=== PATIENT | female | born 1950 | race Caucasian/White ===

== ENCOUNTER 2017-06-26 20:33 | Emergency (ER) | payer BC ==
[2017-06-26 20:56] VITALS: BP 100/68
[2017-06-26] MEDS ORDERED: Ketorolac INJ* 60 MG/2 ML VIAL IM ONE (21:40)
--- NOTE | 2017-06-26 22:45 | ED ---
Bri Rowe Rebecca, scribed for Brian Domínguez MD on 06/26/17 at 2131 . Lower Extremity - HPI Summary HPI Summary: Pt is a 67 y/o F who presents to ED c/o R ankle pain s/p fall. reports that at approximately 1999 they were set[place]ing up camp and she walked out of their RV, missed a step and fell. She reports hearing a "crack" in the L calf area and twisted her R ankle. She currently c/o severe right ankle pain, ranked 10/10. Sx aggravated by ambulation, alleviated by nothing. - History of Current Complaint Chief Complaint: EDExtremityLower Stated Complaint: RT LEG INJURY Time Seen by Provider: 06/26/17 21:21 Hx Obtained From: Patient Mechanism Of Injury: Twisted - R ankle Onset of Pain: Hours - At 2000 tonight, Prior to Arrival Onset/Duration: Still Present Severity Currently: Severe Pain Intensity: 10 Pain Scale Used: 0-10 Numeric Location: Is Discrete @ - R ankle Aggravating Factor(s): Ambulation Alleviating Factor(s): Nothing - Allergies/Home Medications Allergies/Adverse Reactions: Allergies Allergy/AdvReac Type Severity Reaction Status Date / Time No Known Allergies Allergy Verified 06/26/17 20:54 PMH/Surg Hx/FS Hx/Imm Hx Endocrine/Hematology History: Denies: Hx Diabetes Cardiovascular History: Denies: Hx Coronary Artery Disease, Hx Hypertension Infectious Disease History: Yes Infectious Disease History: Denies: Traveled Outside the [place] in Last 30 Days - Family History Known Family History: Positive: Other - CHF - Social History Alcohol Use: None Substance Use Type: Reports: None Smoking Status (MU): Never Smoked Tobacco Review of Systems Negative: Fever Positive: Arthralgia - R ankle pain s/p twisting injury, Other - "crack" in the L calf [employer] All Other Systems Reviewed And Are Negative: Yes Physical Exam Triage Information Reviewed: Yes Vital Signs On Initial Exam: Initial Vitals Temp Pulse Resp BP Pulse Ox 98 F 60 18 100/68 100 06/26/17 20:54 06/26/17 20:54 06/26/17 20:54 06/26/17 20:54 06/26/17 20:54 Vital Signs Reviewed: Yes Appearance: Positive: Well-Appearing, Pain Distress - mild Skin: Positive: Warm Head/Face: Positive: Normal Head/Face Inspection ENT: Positive: Hearing grossly normal Neck: Positive: Supple Respiratory/Lung Sounds: Positive: Breath Sounds Present Cardiovascular: Positive: RRR Musculoskeletal: Positive: Other - bilat ankle sts, from, nvi, lt lower leg mild mid shaft tendewrness Neurological: Positive: Alert, Oriented to Person Place, Time Psychiatric: Positive: Normal Procedures - Splinting Pre-Made Type: knee immobilizer Pre-Proc Neuro Vasc Exam: normal Post-Proc Neuro Vasc Exam: normal Diagnostics - Vital Signs Vital Signs Temp Pulse Resp BP Pulse Ox 06/26/17 20:56 98 F 60 16 100/68 100 06/26/17 20:54 98 F 60 18 100/68 100 - Laboratory Lab Statement: Any lab studies that have been ordered have been reviewed, and results considered in the medical decision making process. - Radiology Bilateral Ankle XR Xray Interpretation: No Acute Changes Radiology Interpretation Completed By: ED Physician LLE XR Xray Interpretation: Positive (See Comments) - Nondiscplaced proximal fibula fracture Radiology Interpretation Completed By: ED Physician Re-Evaluation - Re-Evaluation First Eval Re-Evaluation Time: 22:14 Change: Improved Comment: Discussing XR results. Lower Extremity Course/Dx - Course Assessment/Plan: Pt is a 67 y/o F who presents to ED c/o R ankle pain s/p fall. reports that at approximately 2000 they were set[place]ing up camp and she walked out of their RV, missed a step and fell. She reports hearing a "crack" in the L calf area and twisted her R ankle. She currently c/o severe right ankle pain, ranked 10/10. Sx aggravated by ambulation, alleviated by nothing. As read by ED physician, the bilateral ankle XR reveals no acute findings while the LLE XR is positive for a nondisplaced proximal fibula fracture. In the ED course, pt was administered Toradol. Pt will be D/C to home with crutches and a knee immobilizer with a Dx of fibula fracture with Rx for Motrin. She understands and agrees. - Diagnoses Provider Diagnoses: Fractured fibula Discharge - Discharge Plan Condition: Stable Disposition: HOME Prescriptions: Ibuprofen TAB* [Motrin TAB* 600 MG] 600 mg PO Q6H #30 tab Patient Education Materials: Leg Fracture (ED), Crutch Instructions (ED), Knee Immobilizer (ED) Referrals: Rodolfo Lara MD [Medical Doctor] - 3 Days (Follow up with Dr. Lara in orthopedics. ) The documentation as recorded by the Bri nixon Rebecca accurately reflects the service I personally performed and the decisions made by me, Brian Domínguez MD.
[2017-06-26] MEDS ORDERED: oxyCODONE/Acetamin 5/325 MG* TAB PO ONE (22:46)
--- NOTE | 2017-06-27 07:39 | RAD ---
INDICATION: Bilateral ankle injury. TECHNIQUE: 3 views of both ankles were obtained. FINDINGS: There is bilateral anterolateral soft tissue swelling. There is a 3 mm avulsion fracture fragment arising from the tip of the medial malleolus of the left ankle. There is also mild soft tissue swelling in this area. No other fractures are seen. Joint spaces appear maintained. IMPRESSION: BILATERAL ANKLE SOFT TISSUE SWELLING AND SMALL AVULSION FRACTURE FRAGMENT ARISING FROM THE TIP OF THE MEDIAL MALLEOLUS OF THE LEFT ANKLE.
--- NOTE | 2017-06-27 07:41 | RAD ---
INDICATION: Left lower leg injury. TECHNIQUE: 2 views of the left lower leg were obtained. FINDINGS: There is an oblique slightly comminuted fracture of the proximal diaphysis of the fibula approximately at the junction of the medial and proximal thirds. The fracture fragments are nondisplaced. No other fractures are seen. IMPRESSION: OBLIQUE SLIGHTLY COMMINUTED NONDISPLACED FRACTURE OF THE PROXIMAL FIBULA.
== END 2017-06-27 00:20 | disposition home or self-care (01) ==
LOC: ED 20:33
DX: S82.491A Other fracture of shaft of right fibula, initial encounter for closed fracture (principal); W19.XXXA Unspecified fall, initial encounter; Y92.833 Campsite as the place of occurrence of the external cause
CPT/HCPCS: J1885